=== PATIENT | female | born 1985 | race Caucasian/White ===

== ENCOUNTER → 2017-01-04 | Outpatient (CLI) | payer OTHER | LOC: FIMAGING 09:35 | PROVIDERS: ATTEND Midwife | DX: Z36.89 Encounter for other specified antenatal screening (principal); Z3A.19 19 weeks gestation of pregnancy; O36.61X0 Maternal care for excessive fetal growth, first trimester, not applicable or unspecified ==

== ENCOUNTER → 2017-03-20 | Outpatient (CLI) | payer BC | LOC: FIMAGING 13:44 | PROVIDERS: ATTEND Midwife | DX: Z34.93 Encounter for supervision of normal pregnancy, unspecified, third trimester (principal); Z3A.30 30 weeks gestation of pregnancy ==